=== PATIENT | female | born 1990 | race Caucasian/White ===

== ENCOUNTER 2018-06-18 10:06 | Inpatient (IN) ==
[2018-06-18] MEDS ORDERED: EPINEPHrine PF/SF Inj 1 MG/ML Ampul I-OCULAR ONE (10:17)
[2018-06-18] MEDS ORDERED: Citric Acid/Sodium Citrate Liq 30 ML UDC PO SCH (10:30)
[2018-06-18] MEDS ORDERED: ceFAZolin 2 GM Premix Inj 2 GM/50 ML PIGGYBACK IV.SIG PRN (10:30)
[2018-06-18] MEDS ORDERED: Sodium Chloride 0.9% 2 ML Flush PRN IV.FLUSH (10:34)
--- NOTE | 2018-06-18 10:41 | P.HPOB ---
History of Present Illness Primary Care Physician: No Primary Care Physician PCP History of Present Illness: at 39wks presents for scheduled repeat c/s. Denies cxns, LOF, VB. +Fm obhx: c/s x 1 for arrest of dilation, in 2011, complicated by chorioamnionitus c/s x 1 for LGA in 2016 - baby 10lb medhx: none surghx: ACL repair meds: none all: rash/hives with epidural - Inpatient Certification I certify that the inpatient services were ordered in accordance with Medicare regulations governing the order. This includes certification that hospital inpatient services are reasonable and necessary and in the case of services not specified as inpatient-only under 42 CFR 419.22(n), that they are appropriately provided as inpatient services in accordance to with the 2-midnight benchmark under 43 CFR 412.3(e) Estimated Total Length of Stay (Days): 2 Plans for Post Hospital Care: Home PMFSH - History History Provided By: Patient - Tobacco History Smoking Status: Never smoker - Alcohol History How Often Do You Have a Drink Containing Alcohol: Never - Substance Use History Substance History: No History of Abuse - Travel History History of Recent Travel: No Medications and Allergies Active Medications: Active Medications Citric Acid/Sodium Citrate (Sodium Citrate/Citric Acid Liq) 30 ml PO MARKETING AND PROMOTIONS MANAGER LIZ Stop: 06/22/18 10:29 Cefazolin Sodium/Dextrose (Ancef 2 Gm Premix Inj) 2 gm in 50 mls @ 100 mls/hr IV.SIG MARKETING AND PROMOTIONS MANAGER PRN PRN Reason: surgery Stop: 06/22/18 10:29 Lactated Ringer's (Lr 1000 Ml Inj) 1,000 mls @ 2,000 mls/hr IV.SIG .Q30M ONE Stop: 06/18/18 10:59 Lactated Ringer's (Lr 1000 Ml Inj) 1,000 mls @ 150 mls/hr IV.CONT .Q6H40M LIZ Sodium Chloride (Ns Flush) 2 ml IV.FLUSH BID LIZ Sodium Chloride (Ns Flush) 2 ml IV.FLUSH PRN PRN PRN Reason: FLUSH AFTER USING IV ACCESS Allergies Allergy/AdvReac Type Severity Reaction Status Date / Time bee venom protein (honey bee) Allergy Swelling Verified 05/07/18 14:54 [Bee sting] of Lip/Tongue/Throat Home Medications Medication Instructions Recorded Confirmed Type PNV cmb#95-ferrous fumarate-FA 1 tab PO DAILY 05/07/18 06/18/18 History [] ferrous sulfate [Iron (ferrous 325 mg PO DAILY 06/18/18 06/18/18 History sulfate)] Exam Narrative: GENERAL: Well-nourished, well-developed patient. SKIN: Warm and dry. HEAD: Normocephalic and atraumatic. EYES: No scleral icterus. No injection or drainage. ENT: No nasal drainage noted. Mucous membranes pink. Airway patent. NECK: Supple, trachea midline. No JVD. CARDIOVASCULAR: Regular rate and rhythm without murmurs, gallops, or rubs. RESPIRATORY: Breath sounds equal bilaterally. No accessory muscle use. ABDOMEN/GI: Abdomen soft, non-tender, bowel sounds present, no rebound, no guarding Gravid to 40 weeks size Fundal Height: 40 GENITOURINARY: External Genitalia: intact and normal in appearance FHT's: Category 1 , no decels no cxns EXTREMITIES: No cyanosis or edema. BACK: Nontender without obvious deformity. No CVA tenderness. NEUROLOGICAL: Awake and alert. Motor and sensory grossly within normal limits. Five out of 5 muscle strength in all muscle groups. Normal speech. Results - Labs CBC & Chem 7: 06/18/18 10:30 Caprini VTE Risk Assessment Caprini VTE Risk Assessment: No/Low Risk (score <= 1) Caprini Risk Assessment Model: Point Value = 1 Point Value = 2 Point Value = 3 Point Value = 5 Age 41-60 Minor surgery BMI > 25 kg/m2 Swollen legs Varicose veins or History of unexplained or recurrent spontaneous Oral contraceptives or hormone replacement Sepsis (< 1 month) Serious lung disease, including pneumonia (< 1 month) Abnormal pulmonary function Acute myocardial infarction Congestive heart failure (< 1 month) History of inflammatory bowel disease Medical patient at bed rest Age 61-74 Arthroscopic surgery Major open surgery (> 45 min) Laparoscopic surgery (> 45 min) Malignancy Confined to bed (> 72 hours) Immobilizing plaster cast Central venous access Age >= 75 History of VTE Family history of VTE Factor V Leiden Prothrombin [id number] Lupus anticoagulant Anticardiolipin antibodies Elevated serum homocysteine Heparin-induced thrombocytopenia Other congenital or acquired thrombophilia Stroke (< 1 month) Elective arthroplasty Hip, pelvis, or leg fracture Acute spinal cord injury (< 1 month) Prophylaxis Regimen: Total Risk Factor Score Risk Level Prophylaxis Regimen 0-1 Low Early ambulation 2 Moderate Order ONE of the following: *Sequential Compression Device (SCD) *Heparin 5000 units SQ BID 3-4 Higher Order ONE of the following medications: *Heparin 5000 units SQ TID *Enoxaparin/Lovenox 40 mg SQ daily (WT < 150 kg, CrCl > 30 mL/min) *Enoxaparin/Lovenox 30 mg SQ daily (WT < 150 kg, CrCl > 10-29 mL/min) *Enoxaparin/Lovenox 30 mg SQ BID (WT < 150 kg, CrCl > 30 mL/min) AND/OR *Sequential Compression Device (SCD) 5 or more Highest Order ONE of the following medications: *Heparin 5000 units SQ TID (Preferred with Epidurals) *Enoxaparin/Lovenox 40 mg SQ daily (WT < 150 kg, CrCl > 30 mL/min) *Enoxaparin/Lovenox 30 mg SQ daily (WT < 150 kg, CrCl > 10-29 mL/min) *Enoxaparin/Lovenox 30 mg SQ BID (WT < 150 kg, CrCl > 30 mL/min) AND *Sequential Compression Device (SCD) Assessment and Plan - Diagnosis (1) 39 weeks gestation of Code(s): Z3A.39 - 39 weeks gestation of Status: Acute Plan: at 39wks presents for scheduled repeat c/s. -Admit to L&D, preoperative orders - labs reviewed -Anesthesia aware -Ancef 2 g preoperative -Dr. Chiu, WEB MARKETING STRATEGIST aware
[2018-06-18] MEDS ORDERED: Morphine Sulfate PF Inj 5 MG/10 ML Ampul ONE (10:44)
[2018-06-18 11:05] LABS: Baso % (Auto) 0.3 % (0.0-2.0); Eos # (Auto) 0.1 th/mm3 (0.0-0.4); Eos % (Auto) 0.6 % (0.0-4.0); Hematocrit 35.2 % (35.0-46.0); Hemoglobin 12.8 gm/dL (11.6-15.3); Lymph # (Auto) 1.8 th/mm3 (1.0-4.8); Lymph % (Auto) 17.2 % (9.0-44.0); Mean Corpuscular Hemoglobin 35.2 pg (27.0-34.0); Mean Corpuscular Volume 97.1 fL (80.0-100.0); Mean Platelet Volume 7.8 fL (7.0-11.0); Mono # (Auto) 0.6 th/mm3 (0.0-0.9); Mono % (Auto) 5.9 % (0.0-8.0); Platelet Count 262 th/mm3 (150-450); Red Blood Count 3.63 mil/mm3 (4.00-5.30); Red Cell Distribution Width 12.5 % (11.6-17.2); White Blood Count 10.5 th/mm3 (4.0-11.0)
[2018-06-18 11:09] LABS: Bacteria,Urine Rare /hpf; Bilirubin,Urine Negative (Negative); Clarity,Urine Hazy (Clear); Color,Urine Yellow (Yellw/Straw); Glucose,Urine (UA) Negative (Negative); Leukocyte Esterase,Urine Negative (Negative); Mucus,Urine Few /lpf (Occasional); Nitrite,Urine Negative (Negative); Specific Gravity,Urine 1.012 (1.002-1.035); Squamous Epithelial Cell,Urine 6 /hpf (0-5)
[2018-06-18 11:13] LABS: Mean Corpuscular HGB Conc 36.2 % (32.0-36.0)
[2018-06-18 11:29] LABS: Amphetamine Screen,Urine Neg (Neg); Barbiturate Screen,Urine Neg (Neg); Cannabinoid Screen,Urine Neg (Neg); Cocaine Screen,Urine Neg (Neg)
[2018-06-18 11:36] LABS: Opiate Screen,Urine Neg (Neg)
[2018-06-18] MEDS ORDERED: Phenylephrine/NS 1000 MCG/10ML Syringe IV.PUSH ONE (12:00)
[2018-06-18] MEDS ORDERED: Naloxone Inj 0.4 MG/ML Vial IV.PUSH PRN (12:07)
[2018-06-18] MEDS ORDERED: Zolpidem Tartrate 5 MG Tablet PO PRN (13:50)
--- NOTE | 2018-06-18 13:58 | P.OP ---
- Preoperative Diagnosis (1) Previous delivery affecting , delivered - Postoperative Diagnosis (1) Previous delivery affecting , delivered Date of procedure: 06/19/18 Procedure: Repeat low transverse C section Anesthesia: spinal Surgeon: MD Erika Cox MD R2 Estimated blood loss (mL): 600 Pathology: none sent Operation and Findings: Counts were correct Findings quite a bit of scar tissue over the anterior lower uterine segment making the bladder dissection difficult. Normal tubes normal ovaries normal female infant Apgars 8 and 9 weight 6 pounds 9 ounces Normal posterior cul-de-sac Procedure in detail Taken to the operating room identified by name band and verbally and given a spinal anesthetic. She was prepped and draped in the usual sterile manner for a section. A time out was taken. The old incision was excised sharply and the Pfannenstiel incision was made and carried down to the fascia the fascia was nicked bilaterally and the fascia was taken off the rectus muscle by blunt and sharp dissection. The rectus muscles were spread bluntly and the peritoneum was entered under direct vision. The incision was extended with care to avoid the urinary bladder. A bladder blade was placed and a bladder flap was created in the usual fashion. The lower uterine segment was then incised sharply in a transverse manner and taken down in the midline until the uterine cavity was entered. The incision was extended with the surgeon's fingers. The vertex was grasped and with fundal pressure the vertex was delivered without difficulty hypopharynx and nasopharynx were suctioned and the remainder of the infant delivered without difficulty. The cord clamping was delayed 45 seconds and then the cord was clamped cut and the was handed over to the resuscitation team cord blood was obtained the placenta was removed manually and the uterus was curettaged twice with a wet lap. The uterus was delivered from the abdomen. The uterine incision was repaired with 0 Vicryl in a running fashion in 2 layers the second layer imbricating the first. The cul-de-sac and gutters were cleaned of blood and debris the uterus was delivered back into the abdomen. The rectus muscles were reapproximated with 0 Vicryl in a running the fascia was repaired with 0 Vicryl from lateral to midline bilaterally. There was some bleeding in the left upper portion of the rectus muscle which were tied off with 3-0 chromic with 2 sutures. There was still a little bit of oozing and we put some Luis Antonio in this area to ensure no further bleeding. The subcutaneous layer was repaired with a 3-0 Vicryl. The skin was repaired with a 4-0 Monocryl in a subcuticular manner. Patient tolerated the procedure well and went to recovery room in good condition.
[2018-06-18] MEDS ORDERED: Oxytocin 30 Units/500ml Premix 30 UNITS/500 ML BAG IV.SIG ONE (14:30)
[2018-06-18] MEDS ORDERED: Oxytocin 30 Units/500ml Premix 30 UNITS/500 ML BAG IV.SIG PRN (18:51)
[2018-06-18] MEDS ORDERED: Sodium Chloride 0.9% 2 ML Flush BID IV.FLUSH SCH (21:00)
[2018-06-18] MEDS ORDERED: ceFAZolin 2 GM Premix Inj 2 GM/50 ML PIGGYBACK IV.SIG ONE (22:38)
[2018-06-18] MEDS ORDERED: Sodium Chlor 0.9% Inj 100 ML ONE (22:38)
[2018-06-18] MEDS: ceFAZolin 2 GM Premix Inj 2 GM/50 ML PIGGYBACK IV.SIG SCH (22:43)
[2018-06-18] MEDS ORDERED: Diphtheria/Tetanus/Pertussis Vaccine Inj 0.5 ML Syringe IM ONE (23:00)
[2018-06-19] MEDS ORDERED: ceFAZolin 2 GM Premix Inj 2 GM/50 ML PIGGYBACK IV.SIG SCH (07:00)
[2018-06-19] MEDS: ceFAZolin 2 GM Premix Inj 2 GM/50 ML PIGGYBACK IV.SIG SCH (07:00)
[2018-06-19 09:21] LABS: Baso % (Auto) 0.2 % (0.0-2.0); Eos # (Auto) 0.1 th/mm3 (0.0-0.4); Eos % (Auto) 0.6 % (0.0-4.0); Hematocrit 30.4 % (35.0-46.0); Hemoglobin 10.7 gm/dL (11.6-15.3); Lymph # (Auto) 2.9 th/mm3 (1.0-4.8); Lymph % (Auto) 23.6 % (9.0-44.0); Mean Corpuscular HGB Conc 35.3 % (32.0-36.0); Mean Corpuscular Hemoglobin 34.7 pg (27.0-34.0); Mean Corpuscular Volume 98.3 fL (80.0-100.0); Mean Platelet Volume 7.4 fL (7.0-11.0); Mono # (Auto) 0.8 th/mm3 (0.0-0.9); Mono % (Auto) 6.6 % (0.0-8.0); Neut # (Auto) 8.3 th/mm3 (1.8-7.7); Platelet Count 231 th/mm3 (150-450); Red Blood Count 3.09 mil/mm3 (4.00-5.30); Red Cell Distribution Width 12.4 % (11.6-17.2); White Blood Count 12.1 th/mm3 (4.0-11.0)
--- NOTE | 2018-06-19 09:25 | P.PNOB ---
Subjective Post op day: 1 Objective Vital Signs/I&O: Vital Signs 06/18/18 10:38 06/18/18 10:45 06/18/18 14:05 Temperature 97.5 F L 97.5 F L Pulse Rate 101 H 68 Respiratory Rate 18 18 Blood Pressure 119/75 111/59 L 06/18/18 14:20 06/18/18 14:33 06/18/18 14:50 Temperature Pulse Rate 68 74 73 Respiratory Rate 18 18 16 Blood Pressure 109/56 L 114/61 112/58 L 06/18/18 15:01 06/18/18 16:45 06/18/18 19:45 Temperature 99.0 F 98.6 F Pulse Rate 67 70 75 Respiratory Rate 18 17 18 Blood Pressure 112/58 L 107/67 114/62 06/18/18 23:45 06/19/18 03:45 06/19/18 07:45 Temperature 98.2 F 98.3 F 97.9 F Pulse Rate 82 74 73 Respiratory Rate 18 18 20 Blood Pressure 115/63 101/58 L 105/59 L Intake & Output 06/18/18 06/19/18 06/19/18 18:59 06:59 18:59 Intake Total 1000 / 1000 50 / 50 Balance 1000 / 1000 50 / 50 Weight 100 kg Intake: IV 1000 / 1000 50 / 50 LR 1000 mL Inj 1,000 ML @ 2000 1000 / 1000 mls/hr IV.SIG .Q30M ONE Rx#: [id number] Ancef 2 GM Premix Inj 2 gm In 50 / 50 50 ml @ 200 mls/hr IV.SIG Q8H [facility] Rx#:[id number] Other: Weight On Admission 100 kg Result Diagrams: 06/18/18 10:30 Objective Remarks: GENERAL: Well-nourished, well-developed patient. CARDIOVASCULAR: Regular rate and rhythm without murmurs, gallops, or rubs. RESPIRATORY: Breath sounds equal bilaterally. No accessory muscle use. ABDOMEN/GI: Abdomen soft, non-tender, bowel sounds present. Incision: DRESSING, Clean, dry and intact. Fundus: Firm, non-tender at umbilicus. GENITOURINARY: Light to moderate bleeding. EXTREMITIES: No cyanosis or edema, non-tender, without signs of DVT. Medications and IVs: Active Medications Diphenhydramine HCl (Benadryl) 50 mg PO Q6H PRN PRN Reason: MILD TO MODERATE ITCHING Stop: 06/19/18 12:06 Diphenhydramine HCl (Benadryl Inj) 25 mg IV.PUSH Q6H PRN PRN Reason: MILD TO MODERATE ITCHING Stop: 06/19/18 12:06 Lactated Ringer's (Lr 1000 Ml Inj) 1,000 mls @ 100 mls/hr IV.CONT .Q10H LIZ Stop: 06/19/18 14:50 Last Admin: 06/18/18 18:30 Dose: 100 mls/hr Oxytocin (Pitocin 30 Units/Ns 500 Ml Premix) 30 units in 500 mls @ 100 mls/hr IV.SIG UNSCH PRN PRN Reason: Heavy bleeding Ibuprofen (Motrin) 800 mg PO Q8H PRN PRN Reason: PAIN 1-10 Last Admin: 06/18/18 22:54 Dose: 800 mg Measles/Mumps/Rubella Vaccine Live (M-M-R Ii Vaccine Inj) 0.5 ml SQ .ONCE ONE Stop: 06/19/18 16:01 Miscellaneous Information ([facility]) 1 each OTHER UNSCH PRN PRN Reason: SEE LABEL COMMENTS Stop: 06/19/18 12:06 Miscellaneous Information ([facility]) 1 each OTHER UNSCH PRN PRN Reason: SEE LABEL COMMENTS Stop: 06/19/18 12:06 Naloxone HCl (Narcan Inj) 0.4 mg IV.PUSH UNSCH PRN PRN Reason: SEE LABEL COMMENTS Stop: 06/19/18 12:06 Ondansetron HCl (Zofran Inj) 4 mg IV.PUSH Q6H PRN PRN Reason: NAUSEA OR VOMITING Oxycodone/Acetaminophen (Percocet 5/325 Mg) 1 tab PO Q4H PRN PRN Reason: PAIN SCALE 3 TO 5 Last Admin: 06/19/18 04:21 Dose: 1 tab Oxycodone/Acetaminophen (Percocet 5/325 Mg) 2 tab PO Q4H PRN PRN Reason: PAIN SCALE 6 TO 10 Pantoprazole Sodium (Protonix) 40 mg PO DAILY [facility] Vit/Calcium/Iron/Folic Ac (Stuartnatal Plus 3) 1 tab PO DAILY [facility] Senna/Docusate Sodium (Bushra-Colace) 2 tab PO Q12H PRN PRN Reason: CONSTIPATION Simethicone (Mylicon Chew) 80 mg PO QID PRN PRN Reason: FLATULENCE Sodium Chloride (Ns Flush) 2 ml IV.FLUSH BID LIZ Last Admin: 06/18/18 21:00 Dose: Not Given Sodium Chloride (Ns Flush) 2 ml IV.FLUSH UNSCH PRN PRN Reason: FLUSH AFTER USING IV ACCESS Zolpidem Tartrate (Ambien) 5 mg PO HS PRN PRN Reason: INSOMNIA Assessment and Plan - Diagnosis (1) delivery delivered Code(s): O82 - Encounter for delivery without indication Status: Acute Plan: ROUTINE CARE - Plan pod #1 Pt doing well CBC pending pain well managed with oral herrera medication c/o heartburn., Protonix ordered pt to shower today and remove dressing bonding and baby routine care Discharge Planning: CONSIDER DC IN 1-2 DAYS
[2018-06-19] MEDS: Prenatal Vit/Ca/Iron/Folic Acid Tablet PO SCH (09:27)
[2018-06-19] MEDS ORDERED: Measles/Mumps/Rubella Vaccine Inj 0.5 ML Vial SQ ONE (16:00)
[2018-06-19] MEDS: Senna/Docusate Sodium 8.6/50 MG Tablet PO PRN (18:31)
[2018-06-19] MEDS: Simethicone 80 MG Chew Tablet PO PRN (18:31)
[2018-06-20] MEDS: Simethicone 80 MG Chew Tablet PO PRN ×3 (04:23→21:24)
--- NOTE | 2018-06-20 07:18 | P.PNOB ---
Subjective Post op day: 2 Interval history: Doing well Pain is controlled Bleeding is normal Baby is doing well Objective Vital Signs/I&O: Vital Signs 06/19/18 07:45 06/19/18 11:45 06/19/18 19:45 Temperature 97.9 F 98.0 F 97.4 F L Pulse Rate 73 72 72 Respiratory Rate 20 20 18 Blood Pressure 105/59 L 114/69 117/68 Result Diagrams: 06/19/18 09:10 Objective Remarks: GENERAL: Well-nourished, well-developed patient. CARDIOVASCULAR: Regular rate and rhythm without murmurs, gallops, or rubs. RESPIRATORY: Breath sounds equal bilaterally. No accessory muscle use. ABDOMEN/GI: Abdomen soft, non-tender, bowel sounds present. Incision: Clean, dry and intact. Fundus: Firm, non-tender at umbilicus. GENITOURINARY: Light to moderate bleeding. EXTREMITIES: No cyanosis or edema, non-tender, without signs of DVT. Medications and IVs: Active Medications Oxytocin (Pitocin 30 Units/Ns 500 Ml Premix) 30 units in 500 mls @ 100 mls/hr IV.SIG UNSCH PRN PRN Reason: Heavy bleeding Ibuprofen (Motrin) 800 mg PO Q8H PRN PRN Reason: PAIN 1-10 Last Admin: 06/20/18 04:18 Dose: 800 mg Ondansetron HCl (Zofran Inj) 4 mg IV.PUSH Q6H PRN PRN Reason: NAUSEA OR VOMITING Oxycodone/Acetaminophen (Percocet 5/325 Mg) 1 tab PO Q4H PRN PRN Reason: PAIN SCALE 3 TO 5 Last Admin: 06/19/18 19:29 Dose: 1 tab Oxycodone/Acetaminophen (Percocet 5/325 Mg) 2 tab PO Q4H PRN PRN Reason: PAIN SCALE 6 TO 10 Last Admin: 06/20/18 04:19 Dose: 2 tab Pantoprazole Sodium (Protonix) 40 mg PO DAILY [facility] Last Admin: 06/19/18 10:08 Dose: 40 mg Vit/Calcium/Iron/Folic Ac (Stuartnatal Plus 3) 1 tab PO DAILY [facility] Last Admin: 06/19/18 09:27 Dose: 1 tab Senna/Docusate Sodium (Bushra-Colace) 2 tab PO Q12H PRN PRN Reason: CONSTIPATION Last Admin: 06/19/18 18:31 Dose: 2 tab Simethicone (Mylicon Chew) 80 mg PO QID PRN PRN Reason: FLATULENCE Last Admin: 06/20/18 04:23 Dose: 80 mg Sodium Chloride (Ns Flush) 2 ml IV.FLUSH BID LIZ Last Admin: 06/19/18 22:57 Dose: Not Given Sodium Chloride (Ns Flush) 2 ml IV.FLUSH UNSCH PRN PRN Reason: FLUSH AFTER USING IV ACCESS Zolpidem Tartrate (Ambien) 5 mg PO HS PRN PRN Reason: INSOMNIA Assessment and Plan - Diagnosis (1) delivery delivered Code(s): O82 - Encounter for delivery without indication Status: Acute Plan: ROUTINE CARE - Plan pod #2 Pt doing well. routine care Discharge Planning: CONSIDER DC IN 1-2 DAYS
[2018-06-20] MEDS: Senna/Docusate Sodium 8.6/50 MG Tablet PO PRN (08:15)
[2018-06-20] MEDS: Prenatal Vit/Ca/Iron/Folic Acid Tablet PO SCH (08:15)
[2018-06-20 21:24] VITALS: RESP 18
[2018-06-21] MEDS: Simethicone 80 MG Chew Tablet PO PRN (07:10)
--- NOTE | 2018-06-21 07:34 | P.PNOB ---
Subjective Post op day: 3 Interval history: pain well controlled. min lochia. Ambulating. voiding and passing flatus. Objective Vital Signs/I&O: Vital Signs 06/20/18 08:03 06/20/18 21:23 Temperature 97.4 F L 98.3 F Pulse Rate 78 72 Respiratory Rate 20 18 Blood Pressure 107/67 117/70 Result Diagrams: 06/19/18 09:10 Objective Remarks: GENERAL: Well-nourished, well-developed patient. CARDIOVASCULAR: Regular rate and rhythm without murmurs, gallops, or rubs. RESPIRATORY: Breath sounds equal bilaterally. No accessory muscle use. ABDOMEN/GI: Abdomen soft, non-tender, bowel sounds present. bruise on panus Incision: Clean, dry and intact. Fundus: Firm, non-tender at umbilicus. GENITOURINARY: Light to moderate bleeding. EXTREMITIES: No cyanosis or edema, non-tender, without signs of DVT. Medications and IVs: Active Medications Oxytocin (Pitocin 30 Units/Ns 500 Ml Premix) 30 units in 500 mls @ 100 mls/hr IV.SIG UNSCH PRN PRN Reason: Heavy bleeding Ibuprofen (Motrin) 800 mg PO Q8H PRN PRN Reason: PAIN 1-10 Last Admin: 06/21/18 07:09 Dose: 800 mg Ondansetron HCl (Zofran Inj) 4 mg IV.PUSH Q6H PRN PRN Reason: NAUSEA OR VOMITING Oxycodone/Acetaminophen (Percocet 5/325 Mg) 1 tab PO Q4H PRN PRN Reason: PAIN SCALE 3 TO 5 Last Admin: 06/21/18 07:10 Dose: 1 tab Oxycodone/Acetaminophen (Percocet 5/325 Mg) 2 tab PO Q4H PRN PRN Reason: PAIN SCALE 6 TO 10 Last Admin: 06/20/18 17:00 Dose: 2 tab Pantoprazole Sodium (Protonix) 40 mg PO DAILY [facility] Last Admin: 06/20/18 08:15 Dose: 40 mg Vit/Calcium/Iron/Folic Ac (Stuartnatal Plus 3) 1 tab PO DAILY [facility] Last Admin: 06/20/18 08:15 Dose: 1 tab Senna/Docusate Sodium (Bushra-Colace) 2 tab PO Q12H PRN PRN Reason: CONSTIPATION Last Admin: 06/20/18 08:15 Dose: 2 tab Simethicone (Mylicon Chew) 80 mg PO QID PRN PRN Reason: FLATULENCE Last Admin: 06/21/18 07:10 Dose: 80 mg Sodium Chloride (Ns Flush) 2 ml IV.FLUSH BID LIZ Last Admin: 06/20/18 08:09 Dose: Not Given Sodium Chloride (Ns Flush) 2 ml IV.FLUSH UNSCH PRN PRN Reason: FLUSH AFTER USING IV ACCESS Zolpidem Tartrate (Ambien) 5 mg PO HS PRN PRN Reason: INSOMNIA Assessment and Plan - Diagnosis (1) delivery delivered Code(s): O82 - Encounter for delivery without indication Status: Acute - Plan pod #3 Pt doing well. routine care dispo home today Discharge Planning: dispo home today
[2018-06-21 08:24] VITALS: BP 115/70; PULSE 71; TEMP 98.2
[2018-06-21] MEDS: Prenatal Vit/Ca/Iron/Folic Acid Tablet PO SCH (09:52)
== END 2018-06-21 12:28 | disposition home or self-care (01) ==
LOC: H2E 10:06 → H1EA 15:17
PROVIDERS: ADMIT Obstetrics & Gynecology; ATTEND Obstetrics & Gynecology